=== PATIENT | male | born 1975 | race Caucasian/White ===

== ENCOUNTER 2019-05-02 15:15 | Emergency (ER) | payer SELFPAY ==
[~2019-05-02] VITALS: Ht 177.8 cm; Wt 102.1 kg
[2019-05-02 15:27] VITALS: BP 147/99
[2019-05-02] MEDS ORDERED: TETRACAINE HCL 0.5% OPTH(EYE) SOLN 4ML EACHEYE ONE (16:30)
[2019-05-02] MEDS ORDERED: FLUORESCEIN SOD 1 MG TEST STRIP OP ONE (16:30)
== END 2019-05-02 17:08 | disposition home or self-care (01) ==
LOC: ER 15:15
DX: S05.02XA Injury of conjunctiva and corneal abrasion without foreign body, left eye, initial encounter (principal); Z88.6 Allergy status to analgesic agent; X58.XXXA Exposure to other specified factors, initial encounter; Y93.9 Activity, unspecified; Y99.9 Unspecified external cause status; Y92.9 Unspecified place or not applicable